=== PATIENT | female | born 1990 | race Caucasian/White ===

== ENCOUNTER 2018-04-16 14:22 | Emergency (ER) | payer OTHER ==
[~2018-04-16] VITALS: Ht 160 cm; Wt 59.0 kg
[~2018-04-16 14:22] MED LIST: FOLIC ACID1 MG; TESSALON PERLE100 M1 PO; TUSSI PRES-B L120 M1 PO
[2018-04-16] MEDS ORDERED: CIPRO500 MG PO (16:42)
[2018-04-16] MEDS ORDERED: URETRON D-S TAB1 TAB PO (16:42)
[2018-04-16] MEDS ORDERED: KETO10TA2 PO (19:49)
== END 2018-04-16 19:56 | disposition home or self-care (01) ==
LOC: ER 14:22
DX: N39.0 Urinary tract infection, site not specified (principal)

== ENCOUNTER 2020-09-01 11:44 | Inpatient (IN) | payer OTHER ==
[~2020-09-01] VITALS: Ht 160 cm; Wt 68.9 kg
[~2020-09-01 11:44] MED LIST changes: +CIPRO500 MG PO; +KETO10TA2 PO; +URETRON D-S TAB1 TAB PO
[2020-09-01] MEDS ORDERED: PRENATAL CAPLE1 EAC1 PO (12:54)
[2020-09-01] MEDS ORDERED: TERBUTALINE SU2.5 MG PO (12:56)
[2020-09-01] MEDS ORDERED: NIFE60TA3 PO (12:56)
== END 2020-09-15 15:00 | disposition home or self-care (01) | DRG 833 ==
LOC: LDR 11:44 → OB/GYN 09-03 19:32 → LDR 09-03 20:02
PROVIDERS: ADMIT Specialist; ATTEND Specialist
PROC: 4A1HXCZ Monitoring of Products of Conception, Cardiac Rate, External Approach (ICD-10-PCS; principal; 2020-09-01)
DX: O60.03 Preterm labor without delivery, third trimester (principal); Z20.828 Contact with and (suspected) exposure to other viral communicable diseases

== ENCOUNTER 2020-10-26 09:58 | Inpatient (IN) | payer OTHER ==
[~2020-10-26] VITALS: Ht 160 cm; Wt 74.8 kg
[~2020-10-26 09:58] MED LIST changes: +NIFE60TA3 PO; +PRENATAL CAPLE1 EAC1 PO; +TERBUTALINE SU2.5 MG PO
[2020-10-26] MEDS ORDERED: NIFEDIPINE20 MG PO (11:44)
== END 2020-10-28 18:47 | disposition home or self-care (01) | DRG 807 ==
LOC: SURG-SUITE 09:58 → LDR 09:58 → SURG-SUITE 12:09
PROVIDERS: ADMIT Specialist; ATTEND Specialist
PROC: 10E0XZZ Delivery of Products of Conception, External Approach (ICD-10-PCS; principal; 2020-10-26)
PROC: 0W8NXZZ Division of Female Perineum, External Approach (ICD-10-PCS; 2020-10-26)
PROC: 10907ZC Drainage of Amniotic Fluid, Therapeutic from Products of Conception, Via Natural or Artificial Opening (ICD-10-PCS; 2020-10-26)
PROC: 4A1HXFZ Monitoring of Products of Conception, Cardiac Rhythm, External Approach (ICD-10-PCS; 2020-10-26)
DX: O60.14X0 Preterm labor third trimester with preterm delivery third trimester, not applicable or unspecified (principal); Z37.0 Single live birth; O99.02 Anemia complicating childbirth; D64.9 Anemia, unspecified; Z3A.35 35 weeks gestation of pregnancy; Z20.822 Contact with and (suspected) exposure to COVID-19